=== PATIENT | male | born 1945 | race African-American/Black ===

== ENCOUNTER 2019-05-03 14:25 | Observation (INO) ==
[2019-05-03] MEDS ORDERED: SODIUM CHLORIDE 0.9% 1,000 ML IV STA ×2 (15:17→17:18)
[2019-05-03 16:11] LABS: Basophils # 0.1 10*3/uL (0.0-0.2); Basophils % 0.6 % (0.0-0.8); Eosinophils # 0.3 10*3/uL (0.0-0.87); Eosinophils % 1.2 % (0.00-10.9); Hematocrit 36.6 VOL% (42.0-52.0); Hemoglobin 12.9 GM/DL (14.0-18.0); Immature Granulocytes % 1.4 %; Lymphocytes # 4.2 10*3/uL (1.4-4.0); Lymphocytes % 19.4 % (21.2-54.2); Mean Corpuscular HGB Conc 35.2 GM/DL (32-36); Mean Corpuscular Volume 77.5 FL (87-102); Mean Platelet Volume 8.8 FL (9.6-12.0); Monocytes % 8.9 % (1.7-12.7); Neutrophils % 68.5 % (38.7-73.9); Platelet Count 304 T/CUMM (130-400); Red Blood Count 4.72 MC/CUMM (3.8-5.5); Red Cell Distribution Width 15.3 % (9.3-17.3); White Blood Count 21.5 T/CUMM (4-12)
[2019-05-03 16:22] LABS: Calcium 8.1 MG/DL (8.5-10.1); Osmolality,Calculated 251.2 MOS/KG (273-304)
[2019-05-03 16:35] LABS: Band Neutrophils 1 % (0-10); Eosinophils 1 % (0-10); Lymphocytes 18 % (20-55); Platelet Estimate Normal; Segmented Neutrophils 77 % (50-85); Total Cells Counted 100
[2019-05-03 16:46] LABS: Apearance,Urine CLEAR (Clear); Bilirubin,Urine Negative (Negative); Blood, Urine Negative (Negative); Glucose,Urine (UA) Negative (Negative); Ketones,Urine Negative (Negative); Nitrite,Urine Negative (Negative); Protein,Urine Negative; Urine Color Straw (Yellow); Urine Specific Gravity 1.001 (1.001-1.035); Urine Urobilinogen < 2.0 EU/DL (0.2-1.0)
[2019-05-03] MEDS ORDERED: POTASSIUM CHLORIDE 20 MEQ TABLET PO STA (17:08)
[2019-05-03] MEDS ORDERED: ACETAMINOPHEN 325 MG TABLET PO PRN (17:38)
[2019-05-03] MEDS ORDERED: ONDANSETRON 4 MG/2 ML VIAL IV PRN (17:38)
[2019-05-03] MEDS: ENOXAPARIN 40 MG/0.4 ML SYRINGE SUBCUT SCH (21:39)
[2019-05-03] MEDS: METOCLOPRAMIDE 10 MG/10 ML UDCUP PO SCH (21:39)
[2019-05-04] MEDS: METOCLOPRAMIDE 10 MG/10 ML UDCUP PO SCH ×4 (06:37→20:35)
[2019-05-04 07:14] LABS: Basophils # 0.1 10*3/uL (0.0-0.2); Basophils % 0.8 % (0.0-0.8); Eosinophils # 0.3 10*3/uL (0.0-0.87); Hematocrit 35.5 VOL% (42.0-52.0); Hemoglobin 12.3 GM/DL (14.0-18.0); Immature Granulocytes % 0.8 %; Immature Granulocytes Absolute 0.14 #; Lymphocytes # 3.7 10*3/uL (1.4-4.0); Lymphocytes % 21.3 % (21.2-54.2); Mean Corpuscular HGB Conc 34.6 GM/DL (32-36); Mean Platelet Volume 8.8 FL (9.6-12.0); Monocytes % 8.3 % (1.7-12.7); Neutrophils % 66.8 % (38.7-73.9); Platelet Count 288 T/CUMM (130-400); Red Blood Count 4.55 MC/CUMM (3.8-5.5); Red Cell Distribution Width 15.8 % (9.3-17.3); White Blood Count 17.2 T/CUMM (4-12)
[2019-05-04 07:45] LABS: Albumin 2.1 G/DL (3.4-5.0); Bilirubin,Total 0.9 MG/DL (0.2-1.0); Calcium 8.4 MG/DL (8.5-10.1); Osmolality,Calculated 268.8 MOS/KG (273-304); Total Protein 5.8 G/DL (6.4-8.3)
[2019-05-04] MEDS ORDERED: PANTOPRAZOLE 40 MG TABLET PO SCH (09:00)
[2019-05-04] MEDS: FENOFIBRATE 145 MG TABLET PO SCH (09:12)
[2019-05-04] MEDS: PANTOPRAZOLE 40 MG TABLET PO SCH (09:12)
[2019-05-04] MEDS: ATORVASTATIN 20 MG TABLET PO SCH (09:12)
[2019-05-04] MEDS: MULTIVITAMIN (CENTRUM) TABLET PO SCH (09:12)
[2019-05-04] MEDS: OMEGA 3 ACID ETHYL ESTERS 1 GM CAPSULE PO SCH (09:12)
[2019-05-04] MEDS: ASPIRIN EC 81 MG TABLET PO SCH (09:12)
[2019-05-04] MEDS ORDERED: POTASSIUM CHLORIDE 20 MEQ TABLET PO ONE (10:30)
[2019-05-04] MEDS: NICOTINE 14 MG/24 HR PATCH TRANSDERM SCH (11:26)
[2019-05-04] MEDS: METOPROLOL SUCCINATE XL 25 MG TABLET PO SCH (13:46)
[2019-05-04] MEDS: ENOXAPARIN 40 MG/0.4 ML SYRINGE SUBCUT SCH (20:35)
[2019-05-05 04:50] LABS: Basophils # 0.1 10*3/uL (0.0-0.2); Basophils % 0.9 % (0.0-0.8); Eosinophils # 0.3 10*3/uL (0.0-0.87); Eosinophils % 2.1 % (0.00-10.9); Hematocrit 34.8 VOL% (42.0-52.0); Hemoglobin 11.9 GM/DL (14.0-18.0); Immature Granulocytes % 0.8 %; Immature Granulocytes Absolute 0.11 #; Lymphocytes # 3.4 10*3/uL (1.4-4.0); Lymphocytes % 25.8 % (21.2-54.2); Mean Corpuscular HGB Conc 34.2 GM/DL (32-36); Mean Corpuscular Volume 77.9 FL (87-102); Mean Platelet Volume 8.7 FL (9.6-12.0); Monocytes % 9.7 % (1.7-12.7); Neutrophils % 60.7 % (38.7-73.9); Platelet Count 272 T/CUMM (130-400); Red Blood Count 4.47 MC/CUMM (3.8-5.5); Red Cell Distribution Width 15.8 % (9.3-17.3); White Blood Count 13.3 T/CUMM (4-12)
[2019-05-05 05:21] LABS: Calcium 8.5 MG/DL (8.5-10.1); Osmolality,Calculated 265.1 MOS/KG (273-304)
[2019-05-05] MEDS: POTASSIUM CHLORIDE 20 MEQ TABLET PO PRN ×3 (06:27→11:13)
[2019-05-05] MEDS: OMEGA 3 ACID ETHYL ESTERS 1 GM CAPSULE PO SCH (08:35)
[2019-05-05] MEDS: METOCLOPRAMIDE 10 MG/10 ML UDCUP PO SCH ×2 (08:35→11:13)
[2019-05-05] MEDS: MULTIVITAMIN (CENTRUM) TABLET PO SCH (08:35)
[2019-05-05] MEDS: PANTOPRAZOLE 40 MG TABLET PO SCH (08:35)
[2019-05-05] MEDS: ASPIRIN EC 81 MG TABLET PO SCH (08:35)
[2019-05-05] MEDS: FENOFIBRATE 145 MG TABLET PO SCH (08:36)
[2019-05-05] MEDS: ATORVASTATIN 20 MG TABLET PO SCH (08:37)
[2019-05-05] MEDS: NICOTINE 14 MG/24 HR PATCH TRANSDERM SCH (08:38)
[2019-05-05] MEDS: METOPROLOL SUCCINATE XL 25 MG TABLET PO SCH (08:38)
[2019-05-05 11:34] VITALS: BP 117/76
== END 2019-05-05 15:10 | disposition home or self-care (01) ==
LOC: N.EDINP 14:25 → N.ED 14:25 → N.2E 18:11
PROVIDERS: ADMIT Internal Medicine; ATTEND Internal Medicine

== ENCOUNTER 2021-09-20 12:54 | Inpatient (IN) ==
[2021-09-20 15:37] LABS: Basophils # 0.1 10*3/uL (0.0-0.2); Basophils % 0.5 % (0.0-0.8); Eosinophils # 0.1 10*3/uL (0.0-0.87); Eosinophils % 0.6 % (0.00-10.9); Hematocrit 47.1 VOL% (42.0-52.0); Hemoglobin 15.6 GM/DL (14.0-18.0); Immature Granulocytes % 0.5 %; Immature Granulocytes Absolute 0.06 #; Lymphocytes # 3.3 10*3/uL (1.4-4.0); Lymphocytes % 26.1 % (21.2-54.2); Mean Corpuscular HGB Conc 33.1 GM/DL (32-36); Mean Corpuscular Volume 78.9 FL (87-102); Mean Platelet Volume 9.8 FL (9.6-12.0); Monocytes % 9.6 % (1.7-12.7); Neutrophils % 62.7 % (38.7-73.9); Platelet Count 224 T/CUMM (130-400); Red Blood Count 5.97 MC/CUMM (3.8-5.5); Red Cell Distribution Width 15.2 % (9.3-17.3); White Blood Count 12.5 T/CUMM (4-12)
[2021-09-20 16:10] LABS: Alanine Aminotransferase 13 U/L (16-61); Albumin 3.3 G/DL (3.4-5.0); Alkaline Phosphatase 85 U/L (45-117); Aspartate Amino Transferase 12 U/L (0-37); Blood Urea Nitrogen 19 MG/DL (7-18); Calcium 9.9 MG/DL (8.5-10.1); Carbon Dioxide 27 MMOL/L (21-32); Estimated Glom Filtration Rate 81 ML/MIN; Glucose 111 MG/DL (74-106); Osmolality,Calculated 270.2 MOS/KG (273-304); Potassium 4.3 MMOL/L (3.5-5.1); Sodium 134 MMOL/L (136-145); Total Protein 7.3 G/DL (6.4-8.2)
[2021-09-20] MEDS ORDERED: MAGNESIUM SULF RIDER 4 GM/100 ML PREMIX IV PRN (19:38)
[2021-09-20] MEDS ORDERED: ALUMINUM/MAGNES/SIMETH MAX STR 30 ML UDCUP PO PRN (19:38)
[2021-09-20] MEDS ORDERED: DOCUSATE SODIUM 100 MG CAPSULE PO PRN (19:38)
[2021-09-20] MEDS ORDERED: MAGNESIUM SULF RIDER 2 GM/50 ML PREMIX IV PRN (19:38)
[2021-09-20] MEDS ORDERED: diphenhydrAMINE CAP 25 MG CAPSULE PO PRN (19:38)
[2021-09-20] MEDS ORDERED: ZALEPLON 5 MG CAPSULE PO PRN (19:38)
[2021-09-20] MEDS ORDERED: SIMETHICONE CHEW 125 MG TABLET PO PRN (19:38)
[2021-09-20] MEDS: ENOXAPARIN 40 MG/0.4 ML SYRINGE SUBCUT SCH (21:51)
[2021-09-20] MEDS: METOPROLOL SUCCINATE XL 25 MG TABLET PO SCH (21:52)
[2021-09-20] MEDS: METOCLOPRAMIDE 10 MG/10 ML UDCUP PO SCH (21:52)
[2021-09-21 02:03] LABS: Basophils # 0.1 10*3/uL (0.0-0.2); Basophils % 0.7 % (0.0-0.8); Eosinophils # 0.2 10*3/uL (0.0-0.87); Eosinophils % 1.4 % (0.00-10.9); Hematocrit 46.9 VOL% (42.0-52.0); Hemoglobin 15.3 GM/DL (14.0-18.0); Immature Granulocytes % 0.4 %; Immature Granulocytes Absolute 0.06 #; Lymphocytes # 3.7 10*3/uL (1.4-4.0); Lymphocytes % 26.6 % (21.2-54.2); Mean Corpuscular HGB Conc 32.6 GM/DL (32-36); Mean Corpuscular Volume 78.2 FL (87-102); Mean Platelet Volume 9.9 FL (9.6-12.0); Monocytes % 9.2 % (1.7-12.7); Neutrophils % 61.7 % (38.7-73.9); Platelet Count 226 T/CUMM (130-400); Red Cell Distribution Width 15.6 % (9.3-17.3); White Blood Count 13.7 T/CUMM (4-12)
[2021-09-21 02:39] LABS: Calcium 9.2 MG/DL (8.5-10.1); Osmolality,Calculated 281.7 MOS/KG (273-304); Risk Ratio 2.41; VLDL Cholesterol 24.6 MG/DL
[2021-09-21] MEDS ORDERED: DIGOXIN 0.5 MG/2 ML AMP IV ONE (07:51)
[2021-09-21] MEDS ORDERED: LEVOFLOXACIN 500 MG TABLET PO SCH (09:00)
[2021-09-21] MEDS ORDERED: DILTIAZEM INJ 100 MG in SODIUM CHLORIDE 0.9% 100 ML IV SCH (09:00)
[2021-09-21] MEDS ORDERED: METOPROLOL SUCCINATE XL 25 MG TABLET PO SCH (09:00)
[2021-09-21] MEDS: METOCLOPRAMIDE 10 MG/10 ML UDCUP PO SCH ×4 (09:30→20:33)
[2021-09-21] MEDS: MULTIVITAMIN (CENTRUM) TABLET PO SCH (09:31)
[2021-09-21] MEDS: glipiZIDE 5 MG TABLET PO SCH (09:31)
[2021-09-21] MEDS: ASPIRIN EC 81 MG TABLET PO SCH (09:31)
[2021-09-21] MEDS: PANTOPRAZOLE 40 MG TABLET PO SCH (09:31)
[2021-09-21] MEDS: ATORVASTATIN 20 MG TABLET PO SCH (09:31)
[2021-09-21] MEDS: METOPROLOL SUCCINATE XL 25 MG TABLET PO SCH ×2 (10:18→20:33)
[2021-09-21] MEDS: SODIUM CHLORIDE 0.9% 1,000 ML IV SCH (10:43)
[2021-09-21] MEDS ORDERED: AMIODARONE INJ 150 MG in DEXTROSE 5% 100 ML IV ONE (10:58)
[2021-09-21] MEDS ORDERED: AMIODARONE INJ 450 MG in DEXTROSE 5% 241 ML IV SCH (11:00)
[2021-09-21] MEDS: INSULIN REGULAR 100 UNIT/ML SUBCUT SCH ×3 (12:10→20:32)
[2021-09-21 13:00] LABS: Bilirubin,Urine Negative (Negative); Blood, Urine Negative (Negative); Glucose,Urine (UA) Negative (Negative); Ketones,Urine Negative (Negative); Nitrite,Urine Negative (Negative); Protein,Urine Negative; RBC,Urine 2 /HPF (0-4); Squamous Epithelial Cell,Urine Occasional /HPF (0-10); Urine Appearance CLEAR (Clear); Urine Color Yellow (Yellow); Urine Specific Gravity 1.011 (1.001-1.035); Urine Urobilinogen < 2.0 EU/DL (<2.0)
[2021-09-21] MEDS: AMIODARONE INJ 450 MG in DEXTROSE 5% 241 ML IV SCH (17:33)
[2021-09-21] MEDS ORDERED: FENOFIBRATE 145 MG TABLET PO SCH (19:00)
[2021-09-21] MEDS ORDERED: metFORMIN 500 MG TABLET PO SCH (19:00)
[2021-09-21] MEDS: ENOXAPARIN 40 MG/0.4 ML SYRINGE SUBCUT SCH (20:33)
[2021-09-21] MEDS: FENOFIBRATE 145 MG TABLET PO SCH (20:33)
[2021-09-22] MEDS: SODIUM CHLORIDE 0.9% 1,000 ML IV SCH (00:14)
[2021-09-22 04:50] LABS: Basophils # 0.1 10*3/uL (0.0-0.2); Basophils % 0.6 % (0.0-0.8); Eosinophils # 0.3 10*3/uL (0.0-0.87); Eosinophils % 2.3 % (0.00-10.9); Hematocrit 43.9 VOL% (42.0-52.0); Hemoglobin 14.5 GM/DL (14.0-18.0); Immature Granulocytes % 0.4 %; Immature Granulocytes Absolute 0.05 #; Lymphocytes # 2.5 10*3/uL (1.4-4.0); Lymphocytes % 20.5 % (21.2-54.2); Mean Corpuscular Volume 79.1 FL (87-102); Mean Platelet Volume 10.2 FL (9.6-12.0); Monocytes % 11.4 % (1.7-12.7); Neutrophils % 64.8 % (38.7-73.9); Platelet Count 198 T/CUMM (130-400); Red Blood Count 5.55 MC/CUMM (3.8-5.5); Red Cell Distribution Width 14.9 % (9.3-17.3); White Blood Count 12.3 T/CUMM (4-12)
[2021-09-22 05:15] LABS: Calcium 8.9 MG/DL (8.5-10.1); Osmolality,Calculated 281.5 MOS/KG (273-304); Potassium 4.2 MMOL/L (3.5-5.1)
[2021-09-22] MEDS ORDERED: POTASSIUM CHLORIDE RIDER 10 MEQ/100 ML PREMIX IV PRN (07:45)
[2021-09-22] MEDS: MULTIVITAMIN (CENTRUM) TABLET PO SCH (08:45)
[2021-09-22] MEDS: ASPIRIN EC 81 MG TABLET PO SCH (08:46)
[2021-09-22] MEDS: METOCLOPRAMIDE 10 MG/10 ML UDCUP PO SCH ×4 (08:46→20:52)
[2021-09-22] MEDS: METOPROLOL SUCCINATE XL 25 MG TABLET PO SCH ×2 (08:46→20:53)
[2021-09-22] MEDS: ATORVASTATIN 20 MG TABLET PO SCH (08:46)
[2021-09-22] MEDS: PANTOPRAZOLE 40 MG TABLET PO SCH (08:46)
[2021-09-22] MEDS: glipiZIDE 5 MG TABLET PO SCH (08:49)
[2021-09-22] MEDS: AMIODARONE INJ 450 MG in DEXTROSE 5% 241 ML IV SCH (08:54)
[2021-09-22] MEDS: INSULIN REGULAR 100 UNIT/ML SUBCUT SCH ×4 (08:55→20:52)
[2021-09-22] MEDS ORDERED: FUROSEMIDE 40 MG/4 ML VIAL IV ONE (09:25)
[2021-09-22] MEDS: LEVOFLOXACIN INJ 500 MG/100 ML PREMIX IV SCH (12:21)
[2021-09-22] MEDS ORDERED: fentaNYL 100 MCG/2 ML VIAL ONE ×2 (14:05→15:11)
[2021-09-22] MEDS ORDERED: MIDAZOLAM 2 MG/2 ML VIAL ONE ×2 (14:05→15:03)
[2021-09-22] MEDS: ENOXAPARIN 40 MG/0.4 ML SYRINGE SUBCUT SCH (20:52)
[2021-09-22] MEDS: FENOFIBRATE 145 MG TABLET PO SCH (20:53)
[2021-09-22] MEDS: METOPROLOL TARTRATE 5 MG/5 ML VIAL IV SCH ×2 (21:27→22:03)
[2021-09-23] MEDS: AMIODARONE INJ 450 MG in DEXTROSE 5% 241 ML IV SCH ×3 (02:02→19:50)
[2021-09-23 04:36] LABS: Basophils # 0.1 10*3/uL (0.0-0.2); Basophils % 0.4 % (0.0-0.8); Eosinophils # 0.4 10*3/uL (0.0-0.87); Eosinophils % 2.1 % (0.00-10.9); Hematocrit 46.9 VOL% (42.0-52.0); Hemoglobin 15.5 GM/DL (14.0-18.0); Immature Granulocytes % 0.3 %; Immature Granulocytes Absolute 0.05 #; Lymphocytes # 3.2 10*3/uL (1.4-4.0); Lymphocytes % 19.3 % (21.2-54.2); Mean Corpuscular Volume 78.6 FL (87-102); Mean Platelet Volume 10.2 FL (9.6-12.0); Monocytes % 10.8 % (1.7-12.7); Neutrophils % 67.1 % (38.7-73.9); Platelet Count 212 T/CUMM (130-400); Red Blood Count 5.97 MC/CUMM (3.8-5.5); Red Cell Distribution Width 15.1 % (9.3-17.3); White Blood Count 16.4 T/CUMM (4-12)
[2021-09-23 04:55] LABS: Calcium 9.6 MG/DL (8.5-10.1); Osmolality,Calculated 267.4 MOS/KG (273-304); Potassium 3.9 MMOL/L (3.5-5.1)
[2021-09-23] MEDS: METOPROLOL TARTRATE 5 MG/5 ML VIAL IV SCH ×2 (05:35→09:51)
[2021-09-23] MEDS ORDERED: METOPROLOL TARTRATE 5 MG/5 ML VIAL IV ONE ×2 (05:37→13:34)
[2021-09-23] MEDS: METOCLOPRAMIDE 10 MG/10 ML UDCUP PO SCH (09:32)
[2021-09-23] MEDS: INSULIN REGULAR 100 UNIT/ML SUBCUT SCH ×4 (09:32→20:48)
[2021-09-23] MEDS: PANTOPRAZOLE 40 MG TABLET PO SCH (09:33)
[2021-09-23] MEDS: glipiZIDE 5 MG TABLET PO SCH (09:33)
[2021-09-23] MEDS: ATORVASTATIN 20 MG TABLET PO SCH (09:33)
[2021-09-23] MEDS: ASPIRIN EC 81 MG TABLET PO SCH (09:33)
[2021-09-23] MEDS: MULTIVITAMIN (CENTRUM) TABLET PO SCH (09:33)
[2021-09-23] MEDS: NICOTINE 21 MG/24 HR PATCH TRANSDERM SCH (10:24)
[2021-09-23] MEDS: LEVOFLOXACIN INJ 500 MG/100 ML PREMIX IV SCH (11:00)
[2021-09-23] MEDS: ASCORBIC ACID 500 MG TABLET PO SCH ×2 (11:00→20:49)
[2021-09-23] MEDS ORDERED: AMIODARONE 200 MG TABLET PO SCH (11:00)
[2021-09-23] MEDS: METOPROLOL SUCCINATE XL 25 MG TABLET PO SCH (11:30)
[2021-09-23] MEDS: ENOXAPARIN 40 MG/0.4 ML SYRINGE SUBCUT SCH (20:49)
[2021-09-23] MEDS: FENOFIBRATE 145 MG TABLET PO SCH (20:49)
[2021-09-24 04:40] LABS: Basophils # 0.1 10*3/uL (0.0-0.2); Basophils % 0.3 % (0.0-0.8); Eosinophils # 0.2 10*3/uL (0.0-0.87); Eosinophils % 1.3 % (0.00-10.9); Hematocrit 42.5 VOL% (42.0-52.0); Hemoglobin 14.3 GM/DL (14.0-18.0); Immature Granulocytes % 0.5 %; Lymphocytes # 3.9 10*3/uL (1.4-4.0); Mean Corpuscular HGB Conc 33.6 GM/DL (32-36); Mean Corpuscular Volume 78.1 FL (87-102); Mean Platelet Volume 10.5 FL (9.6-12.0); Monocytes % 12.3 % (1.7-12.7); Neutrophils % 64.6 % (38.7-73.9); Platelet Count 197 T/CUMM (130-400); Red Blood Count 5.44 MC/CUMM (3.8-5.5); Red Cell Distribution Width 14.7 % (9.3-17.3); White Blood Count 18.7 T/CUMM (4-12)
[2021-09-24 05:02] LABS: Calcium 8.8 MG/DL (8.5-10.1); Osmolality,Calculated 267.7 MOS/KG (273-304); Potassium 4.5 MMOL/L (3.5-5.1)
[2021-09-24] MEDS: AMIODARONE INJ 450 MG in DEXTROSE 5% 241 ML IV SCH ×3 (06:15→22:36)
[2021-09-24] MEDS ORDERED: SODIUM CHLORIDE 0.45% 1,000 ML IV SCH ×2 (07:00→10:00)
[2021-09-24] MEDS: INSULIN REGULAR 100 UNIT/ML SUBCUT SCH ×4 (08:51→21:47)
[2021-09-24] MEDS: PANTOPRAZOLE 40 MG TABLET PO SCH (08:55)
[2021-09-24] MEDS: ASPIRIN EC 81 MG TABLET PO SCH (08:55)
[2021-09-24] MEDS: ATORVASTATIN 40 MG TABLET PO SCH (08:55)
[2021-09-24] MEDS: MULTIVITAMIN (CENTRUM) TABLET PO SCH (08:55)
[2021-09-24] MEDS: glipiZIDE 5 MG TABLET PO SCH (08:55)
[2021-09-24] MEDS: ASCORBIC ACID 500 MG TABLET PO SCH ×2 (08:55→21:47)
[2021-09-24] MEDS: NICOTINE 21 MG/24 HR PATCH TRANSDERM SCH (08:56)
[2021-09-24] MEDS ORDERED: MAGNESIUM HYDROXIDE SUSP 30 ML UDCUP PO PRN (11:56)
[2021-09-24] MEDS ORDERED: MAGNESIUM HYDROXIDE SUSP 30 ML UDCUP PO ONE (11:56)
[2021-09-24] MEDS: LEVOFLOXACIN INJ 500 MG/100 ML PREMIX IV SCH (12:46)
[2021-09-24] MEDS: FENOFIBRATE 145 MG TABLET PO SCH (21:47)
[2021-09-24] MEDS: ENOXAPARIN 40 MG/0.4 ML SYRINGE SUBCUT SCH (21:47)
[2021-09-25] MEDS: AMIODARONE INJ 450 MG in DEXTROSE 5% 241 ML IV SCH ×2 (01:49→13:48)
[2021-09-25 06:24] LABS: Basophils # 0.1 10*3/uL (0.0-0.2); Basophils % 0.4 % (0.0-0.8); Eosinophils # 0.2 10*3/uL (0.0-0.87); Eosinophils % 1.1 % (0.00-10.9); Hematocrit 42.5 VOL% (42.0-52.0); Hemoglobin 14.2 GM/DL (14.0-18.0); Immature Granulocytes % 0.6 %; Immature Granulocytes Absolute 0.12 #; Lymphocytes # 3.6 10*3/uL (1.4-4.0); Lymphocytes % 19.2 % (21.2-54.2); Mean Corpuscular HGB Conc 33.4 GM/DL (32-36); Mean Corpuscular Volume 78.4 FL (87-102); Mean Platelet Volume 10.9 FL (9.6-12.0); Monocytes % 12.9 % (1.7-12.7); Neutrophils % 65.8 % (38.7-73.9); Platelet Count 192 T/CUMM (130-400); Red Blood Count 5.42 MC/CUMM (3.8-5.5); Red Cell Distribution Width 14.6 % (9.3-17.3); White Blood Count 18.5 T/CUMM (4-12)
[2021-09-25 07:15] LABS: Calcium 9.1 MG/DL (8.5-10.1); Osmolality,Calculated 271.2 MOS/KG (273-304); Potassium 4.3 MMOL/L (3.5-5.1)
[2021-09-25] MEDS: NICOTINE 21 MG/24 HR PATCH TRANSDERM SCH (09:12)
[2021-09-25] MEDS: INSULIN REGULAR 100 UNIT/ML SUBCUT SCH ×4 (09:12→21:38)
[2021-09-25] MEDS: glipiZIDE 5 MG TABLET PO SCH (09:12)
[2021-09-25] MEDS: ATORVASTATIN 40 MG TABLET PO SCH (09:12)
[2021-09-25] MEDS: MULTIVITAMIN (CENTRUM) TABLET PO SCH (09:12)
[2021-09-25] MEDS: ASCORBIC ACID 500 MG TABLET PO SCH ×2 (09:12→21:37)
[2021-09-25] MEDS: ASPIRIN EC 81 MG TABLET PO SCH (09:12)
[2021-09-25] MEDS: PANTOPRAZOLE 40 MG TABLET PO SCH (09:12)
[2021-09-25] MEDS: POLYETHYLENE GLYCOL POWDER 17 GM PACK PO SCH (09:12)
[2021-09-25] MEDS: SODIUM CHLORIDE 0.45% 1,000 ML IV SCH (09:17)
[2021-09-25] MEDS: AMIODARONE 200 MG TABLET PO SCH ×2 (12:26→21:37)
[2021-09-25] MEDS: LEVOFLOXACIN INJ 500 MG/100 ML PREMIX IV SCH (12:26)
[2021-09-25] MEDS: FLUTICASONE/SALMETEROL 100-50 DISKUS 14 DOSE INH SCH ×2 (12:26→21:37)
[2021-09-25] MEDS ORDERED: ALBUTEROL/IPRATROPIUM 3 ML NEB RESP TX PRN (13:53)
[2021-09-25] MEDS: METOPROLOL TARTRATE 25 MG TABLET PO SCH ×2 (16:26→21:37)
[2021-09-25] MEDS: CEFEPIME 1,000 MG in SODIUM CHLORIDE 0.9% 100 ML IV SCH (18:00)
[2021-09-25] MEDS ORDERED: VANCOMYCIN INJ 1,250 MG in SODIUM CHLORIDE 0.9% 250 ML IV SCH (21:00)
[2021-09-25] MEDS: ENOXAPARIN 40 MG/0.4 ML SYRINGE SUBCUT SCH (21:37)
[2021-09-25] MEDS: FENOFIBRATE 145 MG TABLET PO SCH (21:37)
[2021-09-26] MEDS: SODIUM CHLORIDE 0.45% 1,000 ML IV SCH ×2 (01:03→17:42)
[2021-09-26] MEDS: CEFEPIME 1,000 MG in SODIUM CHLORIDE 0.9% 100 ML IV SCH ×3 (01:03→17:44)
[2021-09-26 06:14] LABS: Basophils # 0.1 10*3/uL (0.0-0.2); Basophils % 0.3 % (0.0-0.8); Eosinophils # 0.3 10*3/uL (0.0-0.87); Eosinophils % 1.9 % (0.00-10.9); Hematocrit 40.6 VOL% (42.0-52.0); Hemoglobin 13.4 GM/DL (14.0-18.0); Immature Granulocytes % 0.6 %; Immature Granulocytes Absolute 0.09 #; Lymphocytes # 2.6 10*3/uL (1.4-4.0); Mean Corpuscular Volume 79.3 FL (87-102); Mean Platelet Volume 10.5 FL (9.6-12.0); Monocytes % 12.8 % (1.7-12.7); Neutrophils % 67.4 % (38.7-73.9); Platelet Count 188 T/CUMM (130-400); Red Blood Count 5.12 MC/CUMM (3.8-5.5); Red Cell Distribution Width 14.7 % (9.3-17.3); White Blood Count 15.3 T/CUMM (4-12)
[2021-09-26 06:32] LABS: Potassium 4.6 MMOL/L (3.5-5.1)
[2021-09-26] MEDS: glipiZIDE 5 MG TABLET PO SCH (09:08)
[2021-09-26] MEDS: MULTIVITAMIN (CENTRUM) TABLET PO SCH (09:08)
[2021-09-26] MEDS: ASPIRIN EC 81 MG TABLET PO SCH (09:08)
[2021-09-26] MEDS: METOPROLOL TARTRATE 25 MG TABLET PO SCH ×2 (09:08→22:01)
[2021-09-26] MEDS: ASCORBIC ACID 500 MG TABLET PO SCH ×2 (09:08→22:01)
[2021-09-26] MEDS: ATORVASTATIN 40 MG TABLET PO SCH (09:08)
[2021-09-26] MEDS: PANTOPRAZOLE 40 MG TABLET PO SCH (09:09)
[2021-09-26] MEDS: AMIODARONE 200 MG TABLET PO SCH ×2 (09:09→22:01)
[2021-09-26] MEDS: FLUTICASONE/SALMETEROL 100-50 DISKUS 14 DOSE INH SCH ×2 (09:12→22:01)
[2021-09-26] MEDS: POLYETHYLENE GLYCOL POWDER 17 GM PACK PO SCH (09:13)
[2021-09-26] MEDS: NICOTINE 21 MG/24 HR PATCH TRANSDERM SCH (09:14)
[2021-09-26] MEDS: INSULIN REGULAR 100 UNIT/ML SUBCUT SCH ×4 (09:39→22:02)
[2021-09-26] MEDS ORDERED: POTASSIUM CHLORIDE RIDER 10 MEQ/100 ML PREMIX IV PRN (10:17)
[2021-09-26] MEDS ORDERED: LIDOCAINE 1% 20 ML VIAL ONE (13:16)
[2021-09-26] MEDS ORDERED: HEPARIN/NACL 0.9% 2 UNITS/ML 3,000 UNIT/1,500 ML BAG IV ONE (13:16)
[2021-09-26] MEDS ORDERED: MIDAZOLAM 2 MG/2 ML VIAL ONE (13:51)
[2021-09-26] MEDS ORDERED: fentaNYL 100 MCG/2 ML VIAL ONE (13:51)
[2021-09-26] MEDS ORDERED: HEPARIN 5,000 UNIT/1 ML VIAL ONE (14:13)
[2021-09-26] MEDS ORDERED: NITROGLYCERIN DRIP 50 MG/250 ML BOTTLE IV ONE (14:15)
[2021-09-26] MEDS: ENOXAPARIN 40 MG/0.4 ML SYRINGE SUBCUT SCH (22:01)
[2021-09-26] MEDS: FENOFIBRATE 145 MG TABLET PO SCH (22:01)
[2021-09-27] MEDS: CEFEPIME 1,000 MG in SODIUM CHLORIDE 0.9% 100 ML IV SCH ×2 (02:16→10:40)
[2021-09-27 05:11] LABS: Basophils # 0.1 10*3/uL (0.0-0.2); Basophils % 0.5 % (0.0-0.8); Eosinophils # 0.4 10*3/uL (0.0-0.87); Eosinophils % 2.8 % (0.00-10.9); Hematocrit 39.3 VOL% (42.0-52.0); Hemoglobin 12.8 GM/DL (14.0-18.0); Immature Granulocytes % 0.5 %; Immature Granulocytes Absolute 0.06 #; Lymphocytes # 2.6 10*3/uL (1.4-4.0); Lymphocytes % 20.6 % (21.2-54.2); Mean Corpuscular HGB Conc 32.6 GM/DL (32-36); Mean Corpuscular Volume 78.8 FL (87-102); Mean Platelet Volume 9.8 FL (9.6-12.0); Monocytes % 12.9 % (1.7-12.7); Neutrophils % 62.7 % (38.7-73.9); Platelet Count 212 T/CUMM (130-400); Red Blood Count 4.99 MC/CUMM (3.8-5.5); Red Cell Distribution Width 14.6 % (9.3-17.3); White Blood Count 12.8 T/CUMM (4-12)
[2021-09-27 05:35] LABS: Calcium 8.6 MG/DL (8.5-10.1); Potassium 4.1 MMOL/L (3.5-5.1)
[2021-09-27] MEDS: SODIUM CHLORIDE 0.45% 1,000 ML IV SCH (07:32)
[2021-09-27] MEDS: NICOTINE 21 MG/24 HR PATCH TRANSDERM SCH (10:38)
[2021-09-27] MEDS: POLYETHYLENE GLYCOL POWDER 17 GM PACK PO SCH (10:38)
[2021-09-27] MEDS: ASPIRIN EC 81 MG TABLET PO SCH (10:39)
[2021-09-27] MEDS: MULTIVITAMIN (CENTRUM) TABLET PO SCH (10:39)
[2021-09-27] MEDS: glipiZIDE 5 MG TABLET PO SCH (10:39)
[2021-09-27] MEDS: AMIODARONE 200 MG TABLET PO SCH (10:39)
[2021-09-27] MEDS: ATORVASTATIN 40 MG TABLET PO SCH (10:39)
[2021-09-27] MEDS: METOPROLOL TARTRATE 25 MG TABLET PO SCH (10:40)
[2021-09-27] MEDS: PANTOPRAZOLE 40 MG TABLET PO SCH (10:40)
[2021-09-27] MEDS: ASCORBIC ACID 500 MG TABLET PO SCH (10:40)
[2021-09-27] MEDS: FLUTICASONE/SALMETEROL 100-50 DISKUS 14 DOSE INH SCH (10:41)
[2021-09-27] MEDS: INSULIN REGULAR 100 UNIT/ML SUBCUT SCH ×2 (12:43→12:49)
[2021-09-27 13:30] VITALS: BP 119/72
== END 2021-09-27 14:55 | disposition home or self-care (01) | DRG 286 ==
LOC: N.5E → N.ICU 09-21 09:04 → SUATTDRO 09-21 10:44 → N.TELEN 09-23 16:22
PROVIDERS: ADMIT Internal Medicine Cardiovascular Disease; ATTEND Internal Medicine Cardiovascular Disease